=== PATIENT | female | born 1975 | race Caucasian/White ===

== ENCOUNTER → 2021-08-28 | Outpatient (CLI) | payer OTHER ==
--- NOTE | 2021-08-28 14:58 | CONS ---
CONSULTATION DATE OF SERVICE: 08/28/2021 This 46-year-old lady has been evaluated in Sleep Center for possible obstructive sleep apnea-hypopnea syndrome. HISTORY OF PRESENT ILLNESS/SLEEP-WAKE EVALUATION: Patient's usual sleep schedule is from 9 or 10 p.m. to 6 a.m., basically 7 days a week. She does have problems with falling asleep, has a TV set in the bedroom. She usually sleeps on the side position with loud with loud snoring and witnessed episodes by her bed partner of stopped breathing during sleep. Positive history of heartburn during sleep. She wakes up from sleep 3 times with nocturia. No history of hypnagogic hallucinations, sleep paralysis or cataplexy. During the day, the patient has problems with concentration. [place] Sleepiness Scale is 3. Usually she does not take any naps. She takes 3 cups of coffee in the morning. 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 PAST SURGICAL HISTORY: Total left-sided hip joint replacement. MEDICATIONS: Adderall 20 mg once a day. SOCIAL HISTORY: Positive for smoking one pack a day for about 30 years. Alcohol consumption occasional. FAMILY HISTORY: Sleep apnea in her father. Narcolepsy in her mom. Headaches, cancer, diabetes, mental illness, restless legs in her mom. REVIEW OF SYSTEMS: Loud snoring, multiple awakenings from sleep, difficulties concentrating during the day. No fevers. No double vision. No recent chest pain. No shortness of breath. No abdominal pain. No bleeding episodes. No blood in the urine. No seizure episodes. PHYSICAL EXAMINATION: GENERAL APPEARANCE: Pleasant 46-year-old lady without distress. VITAL SIGNS: BP 148/104 in right arm and 155/102 in left arm. Respiratory rate 18, height 5 feet 2-1/3 inches, weight 149.6 pounds, body mass index 26.9, temperature 97.3, oxygen saturation at room air 98%. HEENT: PERRLA, EOMI, evaluation of oropharynx showed tongue protrudes midline. Big uvula. soft palate; Mallampati II. NECK: Supple, no JVD. Thyroid is not palpable. LUNGS: Clear to percussion and to auscultation. Good air exchange. No wheezing or rhonchi. HEART: S1, S2 regular. No murmurs, gallops, or rubs. ABDOMEN: Soft and nontender. Bowel sounds are present. No organomegaly appreciated. EXTREMITIES: No clubbing or cyanosis. CHAMBER WORKER: Awake, alert, and oriented X3. Cranial nerves 2 to 7 intact. There is no fasciculation or atrophy. noted. No focal deficits observed. IMPRESSION: 1. Loud snoring, witnessed episodes of stopped breathing during sleep, multiple awakenings from sleep with nocturia; obstructive sleep apnea-hypopnea syndrome. 2. Attention deficit hyperactivity disorder. 3. Headaches. 4. Acid reflux. 5. History of left hip avascular necrosis, status post left hip total joint replacement. 6. Smoking for 30 pack/years. PLAN: 1. Polysomnography for evaluation of patient's breathing during sleep. 2. CPAP/BiPAP titration if sleep study confirms obstructive sleep apnea-hypopnea syndrome. 3. Preferable position during sleep on the side. 4. No driving if patient feels any sleepiness. 5. I will see patient for follow up visit to explain results of testing and following plan. Thank you very much for referring this patient for consultation. Sincerely, Remington Pavon MD, PhD, FAASM Diplomat of [employer] Sleep Medicine Board of [place] [employer] Medicine Home Health Nurse of [facility] [place] MMODL / TOMÁSN: [id number] /
== END ==
LOC: SLEEP 13:03
PROVIDERS: ATTEND Internal Medicine
DX: G47.33 Obstructive sleep apnea (adult) (pediatric) (principal); R06.83 Snoring; F90.9 Attention-deficit hyperactivity disorder, unspecified type; R51.9 Headache, unspecified; K21.9 Gastro-esophageal reflux disease without esophagitis; F17.200 Nicotine dependence, unspecified, uncomplicated
CPT/HCPCS: 99202

== ENCOUNTER → 2022-10-12 | Outpatient (CLI) | payer BC ==
--- NOTE | 2022-10-13 08:34 | MM ---
Reason for Exam: Screening (asymptomatic). Last mammogram was performed 1 year(s) and 1 month(s) ago. Patient History: Menarche at age 15. First Full-Term at age 26. Premenopausal. Hormonal Contraceptives for 3 years from age 19 until age 22. Sister had breast cancer, age 42. Risk Values: Roma 5 year model risk: 1.6%. NCI Lifetime model risk: 17.6%. Prior Study Comparison: 09/11/2020 Bilateral Screening Mammogram, [facility]. 09/15/2021 Bilateral Screening Mammogram, [facility]. 09/25/2021 Right Diagnostic Mammogram, [facility]. Tissue Density: The breast tissue is heterogeneously dense. This may lower the sensitivity of mammography. Findings: Analyzed By CAD. There is no suspicious group of microcalcifications or new suspicious mass in either breast. Overall Assessment: Benign, BI-RAD 2 Management: Screening Mammogram of both breasts in 1 year. A clinical breast exam by your physician is recommended on an annual basis and results should be correlated with mammographic findings. Electronically signed and approved by: Vance Sweet M.D. Radiologis
== END | disposition home or self-care (01) ==
LOC: RADMAMWWP 08:42
PROVIDERS: ATTEND Family Medicine
DX: Z12.31 Encounter for screening mammogram for malignant neoplasm of breast (principal); Z80.3 Family history of malignant neoplasm of breast
CPT/HCPCS: 77063; 77067

== ENCOUNTER → 2022-12-31 | Outpatient (CLI) | payer BC ==
--- NOTE | 2022-12-31 15:42 | P.PN ---
Subjective DATE: 12/31/2022 FOLLOW UP VISIT. Patient with obstructive sleep apnea hypopnea syndrome return to sleep center for follow-up visit. Recently patient had sleep study which documented obstructive sleep apnea hypopnea syndrome. Patient was initiated on PAP therapy and today is first visit after treatment was started. Patient was able to use PAP equipment every night for the whole night. The patient does not have significant problems with PAP pressure and humidification. Patient has full face mask, was to try nasal mask. [place] sleepiness scale is 7, which is in normal range. I checked information from PAP unit. PAP unit pressure 5-8, average 7.9 cm H2O. Usage is 90% and 60 % for more then 4 hours, average 4.5 hours per night. Leak is 4.7 l/m, which is in acceptable range. Apnea Hypopnea Index is 2.9, which is normal. MEDICATIONS:1. Adderall 20 mg twice a day During physical exam: GENERAL: A pleasant patient without any distress. VITAL SIGNS: BP 135/88, HR 72, RR 12, weight 133.2, temperature 97.7, oxygen saturation at room air 98. HEENT: PERRLA, EOMI.low position of soft palate, Mallapati[] . NECK: Supple. No JVD. LUNGS: Clear to percussion and to auscultation. Good air exchange. No wheezing or rhonchi. HEART: S1, S2 regular. ABDOMEN: Soft and nontender.[] EXTREMITIES: No clubbing or cyanosis. STREET ENGINEER: Awake, alert, and oriented x3. No focal deficit. Impressions: 1. Obstructive sleep apnea-hypopnea syndrome. Patient demonstrated borderline compliance with treatment, benefiting from treatment. 2. History of ADHD. 3. History of acid reflux. 4. History of headaches. 5. History of left hip I'll ask her necrosis, status post left hip total joint replacement. 6. Smoker for about 30 pack years. Preescription for dream where under the nose mask. Plan: 1. Continue using PAP equipment every night for the whole night. 2. To change air filter at least 1-2 times per month. 3. PAP unit should stay lower then position of the head. 4. Advised patient to remove all remaining water from humidifier canister daily and make it dry after each usage. Refill canister with fresh distilled water before each usage. 5. Sleep hygiene with regular time in bed for at least 8 hours. 6. Precautions related to driving. No driving if feel any sleepiness. 7. I will maintain prescription for PAP supplies including mask, tube, filters. 8. Follow up visit in 6 months or earlier if patient has any problems. Thank you very much for allowing me to participate in the management of your patient. Remington Pavon MD, PhD, FAASM. Diplomat of [place] [employer] Medicine, Sleep Medicine Board by [place] [employer] Ham Stringer of [facility] [place]
== END ==
LOC: 3 N SLEEP 14:36
PROVIDERS: ATTEND Internal Medicine
DX: G47.33 Obstructive sleep apnea (adult) (pediatric) (principal); F17.200 Nicotine dependence, unspecified, uncomplicated; F90.9 Attention-deficit hyperactivity disorder, unspecified type; R51.9 Headache, unspecified; K21.9 Gastro-esophageal reflux disease without esophagitis; Z96.642 Presence of left artificial hip joint; Z99.89 Dependence on other enabling machines and devices
CPT/HCPCS: 99212

== ENCOUNTER → 2023-01-01 | Outpatient (CLI) | payer BC ==
--- NOTE | 2023-01-01 13:51 | US ---
EXAMINATION TYPE: US mass soft tissue chest/back DATE OF EXAM: 01/01/2023 COMPARISON: NONE CLINICAL INDICATION: Female, 47 years old with history of PALP, N60.09, CYST; TECHNIQUE: Ultrasound at the site of clinical concern was performed corresponds to the chest wall/st ernal region FINDINGS: At the site of clinical concern there is an 8 x 6 mm smoothly marginated cystic structure with mba internship al debris just below the skin line. This may reflect a sebaceous cyst. Dermatology consult recommende d. IMPRESSION: Probable sebaceous cyst.
== END | disposition home or self-care (01) ==
LOC: RADMAMWWP 12:59
PROVIDERS: ATTEND Family Medicine
DX: N60.09 Solitary cyst of unspecified breast (principal); N63.0 Unspecified lump in unspecified breast

== ENCOUNTER → 2023-07-22 | Outpatient (CLI) | payer BC ==
--- NOTE | 2023-07-22 12:19 | P.PN ---
Subjective DATE: 07/22/2023 FOLLOW UP VISIT. Patient with obstructive sleep apnea hypopnea syndrome return to sleep center for follow-up visit. Information from previous visit have been reviewed. Patient is using PAP equipment every night for the whole night, getting PAP supplies in time. The patient does not have significant problems with the mask, PAP unit and humidification. [place] sleepiness scale is 3, which is normal. I checked information from PAP unit. PAP unit pressure 5-8, average 7.7 cm H2O. Usage is 93% and 90 % for more then 4 hours, average 6.5 hours per night. Leak is 6.0 l/m, which is in acceptable range. Apnea Hypopnea Index is 0.7, which is normal. MEDICATIONS:1. Lamictal 2. Adderall 20 mg twice a day 3. Seroquel at bedtime During physical exam: GENERAL: A pleasant patient without any distress. VITAL SIGNS: BP 134/91, HR 92, RR 12, weight 141.6, temperature 98.1, oxygen saturation at room air 99 % . HEENT: PERRLA, EOMI.low position of soft palate. NECK: Supple. No JVD. LUNGS: Clear to percussion and to auscultation. Good air exchange. No wheezing or rhonchi. HEART: S1, S2 regular. ABDOMEN: Soft and nontender.[] EXTREMITIES: No clubbing or cyanosis. CARPENTER/LABOR: Awake, alert, and oriented x3. No focal deficit. Impressions: 1. Obstructive sleep apnea-hypopnea syndrome. Patient demonstrated great compliance with treatment, benefiting from treatment. 2. History of ADHD. 3. History of headaches. 4. History of acid reflux. 5. Status post left hip replacement. Plan: 1. Continue using PAP equipment every night for the whole night. 2. To change air filter at least 1-2 times per month. 3. PAP unit should stay lower then position of the head. 4. Advised patient to remove all remaining water from humidifier canister daily and make it dry after each usage. Refill canister with fresh distilled water before each usage. 5. Sleep hygiene with regular time in bed for at least 8 hours. 6. Precautions related to driving. No driving if feel any sleepiness. 7. I will maintain prescription for PAP supplies including mask, tube, filters. 8. Follow up visit in 6 months or earlier if patient has any problems. 9. Watching weight. Thank you very much for allowing me to participate in the management of your p atient. Remington Pavon MD, PhD, FAASM. Diplomat of [place] [employer] Sleep Medicine, Sleep Medicine Board by [employer] [employer] Medicine Ladies Underwear Operator of [facility] [place]
== END ==
LOC: 3 N SLEEP 11:21
PROVIDERS: ATTEND Internal Medicine
DX: G47.33 Obstructive sleep apnea (adult) (pediatric) (principal); F90.9 Attention-deficit hyperactivity disorder, unspecified type; K21.9 Gastro-esophageal reflux disease without esophagitis; Z96.642 Presence of left artificial hip joint; Z86.69 Personal history of other diseases of the nervous system and sense organs; Z99.89 Dependence on other enabling machines and devices
CPT/HCPCS: 99212

== ENCOUNTER → 2024-02-02 | Outpatient (CLI) | payer BC ==
--- NOTE | 2024-02-07 10:31 | MM ---
Reason for Exam: Screening (asymptomatic). Last mammogram was performed 1 year(s) and 3 month(s) ago. Patient History: Menarche at age 15. First Full-Term at age 26. Premenopausal. Hormonal Contraceptives for 3 years from age 19 until age 22. Sister had breast cancer, age 42. Risk Values: Roma 5 year model risk: 1.6%. NCI Lifetime model risk: 17.3%. Prior Study Comparison: 09/11/2020 Bilateral Screening Mammogram, [facility]. 09/15/2021 Bilateral Screening Mammogram, [facility]. 09/25/2021 Right Diagnostic Mammogram, [facility]. 10/12/2022 Bilateral MG 3D screening mammo w/cad, [facility]. Tissue Density: The breasts are heterogeneously dense, which may obscure small masses. Findings: Analyzed By CAD. Right breast: There is no suspicious group of microcalcifications or new suspicious mass. Left breast: There is no suspicious group of microcalcifications or new suspicious mass. Overall Assessment: Negative, BI-RAD 1 Management: Screening Mammogram of both breasts in [address] [facility] will attempt to contact patient to return for supplemental views and ultrasound if indicated. Patient should continue monthly self-breast exams. A clinical breast exam by your physician is recommended on an annual basis. This exam should not preclude additional follow-up of suspicious palpable abnormalities. Note on Roma scores and lifetime risk: 1. A Roma score greater than 3% is considered moderate risk. If this is the case, consider specialist referral to assess eligibility for a risk reducing agent. 2. If overall lifetime risk for the development of breast cancer is 20% or higher, the patient may qualify for future screening with alternating mammogram and breast MRI. Electronically signed and approved by: Drake Chahal DO
== END | disposition home or self-care (01) ==
LOC: RADMAMWWP 13:00
PROVIDERS: ATTEND Family Medicine
DX: Z12.31 Encounter for screening mammogram for malignant neoplasm of breast (principal); Z80.3 Family history of malignant neoplasm of breast; R92.333 Mammographic heterogeneous density, bilateral breasts
CPT/HCPCS: 77063; 77067

== ENCOUNTER → 2024-05-18 | Outpatient (CLI) | payer BC ==
[2024-05-18 14:29] VITALS: BP 153/96; PULSE 86; RESP 16; TEMP 98
--- NOTE | 2024-05-18 14:55 | P.PROGSL ---
Subjective DATE: 05/18/2024 FOLLOW UP VISIT. Patient with obstructive sleep apnea hypopnea syndrome return to sleep center for follow-up visit. Information from previous visit have been reviewed. Patient is using PAP equipment every night for the whole night, getting PAP supplies in time. The patient does not have significant problems with the mask, PAP unit and humidification. [place] sleepiness scale is 7, which is in normal range. I checked information from PAP unit. PAP unit pressure 5-8, average 7.8 cm H2O. Usage is 100% for more then 4 hours, average 6.2 hours per night. Leak is perfect 0 l/m. Apnea Hypopnea Index is 2.5 for the last night and 0.7 average for the year, which is normal. MEDICATIONS have been reviewed, please see below. During physical exam: GENERAL: A pleasant patient without any distress. VITAL SIGNS: Please see below, weight is 151.6 lbs. HEENT: PERRLA, EOMI.low position of soft palate, Mallapati 3. NECK: Supple. No JVD. LUNGS: Clear to percussion and to auscultation. Good air exchange. No wheezing or rhonchi. HEART: S1, S2 regular. ABDOMEN: Soft and nontender.[] EXTREMITIES: No clubbing or cyanosis. NET COORDINATOR: Awake, alert, and oriented x3. No focal deficit. Impressions: 1. Obstructive sleep apnea-hypopnea syndrome. Patient demonstrated great compliance with treatment, benefiting from treatment. 2. History of headaches. 3. History of ADHD. 4. Status post left hip replacement. 5. History of acid reflux. Plan: 1. Continue using PAP equipment every night for the whole night. 2. Sleep hygiene with regular time in bed for at least 7.5-8 hours 3. PAP unit should stay lower then position of the head. 4. Advised patient to remove all remaining water from humidifier canister daily and make it dry after each usage. Refill canister with fresh distilled water before each usage. 5. Watching weight. 6. Precautions related to driving. No driving if feel any sleepiness. 7. I will maintain prescription for PAP supplies including mask, tube, filters. 8. Follow up visit in 8 months or earlier if patient has any problems. Thank you very much for allowing me to participate in the management of your patient. Remington Pavon MD, PhD, FAASM. Diplomat of [place] [employer] Sleep Medicine, Sleep Medicine Board by [place] [employer] Internal Medicine Firefighter Marine of [facility] [place] Objective - Vital Signs Vital Signs: Vital Signs Temp 98.0 F 05/18/24 14:28 Pulse 86 05/18/24 14:28 Resp 16 05/18/24 14:28 BP 153/96 05/18/24 14:28 Pulse Ox 94 L 05/18/24 14:28 FiO2 Intake & Output 05/17/24 05/18/24 05/18/24 18:59 06:59 18:59 Weight 68.663 kg Home Medications: Home Medications Medication Instructions Recorded Confirmed Type Albuterol Inhaler [Ventolin Hfa 1 - 2 puff INHALATION Q6H PRN 05/18/24 05/18/24 History Inhaler] Benzonatate [Tessalon Perle] 200 mg PO TID 05/18/24 05/18/24 History Dextroamphetamine/Amphetamine 20 mg PO BID 05/18/24 05/18/24 History [Adderall] Fluticasone Nasal [place] [Flonase 1 spray EA NOSTRIL DAILY 05/18/24 05/18/24 History Nasal [place]] Loratadine [Claritin] 10 mg PO DAILY 05/18/24 05/18/24 History QUEtiapine [SEROquel] 25 mg PO HS 05/18/24 05/18/24 History
== END ==
LOC: 3 N SLEEP 13:47
PROVIDERS: ATTEND Internal Medicine
DX: G47.33 Obstructive sleep apnea (adult) (pediatric) (principal); F90.9 Attention-deficit hyperactivity disorder, unspecified type; Z99.89 Dependence on other enabling machines and devices; Z96.642 Presence of left artificial hip joint; Z86.69 Personal history of other diseases of the nervous system and sense organs; Z87.19 Personal history of other diseases of the digestive system
CPT/HCPCS: 99212

== ENCOUNTER → 2025-01-17 | Outpatient (CLI) | payer BC ==
[2025-01-17 14:21] VITALS: BP 151/104; PULSE 89; RESP 12; TEMP 98
--- NOTE | 2025-01-17 14:36 | P.PROGSL ---
Subjective DATE: 01/17/2025 FOLLOW UP VISIT. Patient with obstructive sleep apnea hypopnea syndrome return to sleep center for follow-up visit. Information from previous visit have been reviewed. Patient is using PAP equipment every night for the whole night, getting PAP supplies in time. The patient does not have significant problems with the mask, PAP unit and humidification. [place] sleepiness scale is 1, which is perfect. I checked information from PAP unit. PAP unit pressure 5-8, average 7.9 cm H2O. Usage is 100% for more then 4 hours, average 6.9 hours per night. Leak is absent 0 l/m. Apnea Hypopnea Index is 0.8, which is great. MEDICATIONS have been reviewed, please see below. During physical exam: GENERAL: A pleasant patient without any distress. VITAL SIGNS: Please see below, weight is 157 lbs. HEENT: PERRLA, EOMI.low position of soft palate, Mallapati 3. NECK: Supple. No JVD. LUNGS: Clear to percussion and to auscultation. Good air exchange. No wheezing or rhonchi. HEART: S1, S2 regular. ABDOMEN: Soft and nontender.[] EXTREMITIES: No clubbing or cyanosis. BOOKING MANAGER: Awake, alert, and oriented x3. No focal deficit. Impressions: 1. Obstructive sleep apnea-hypopnea syndrome. Patient demonstrated great compliance with treatment, benefiting from treatment. 2. History of ADHD. 3. History of headaches. 4. Status post left hip replacement. 5. History of acid reflux. Plan: 1. Continue using PAP equipment every night for the whole night. 2. Sleep hygiene with regular time in bed for at least 7.5-8 hours 3. PAP unit should stay lower then position of the head. 4. Advised patient to remove all remaining water from humidifier canister daily and make it dry after each usage. Refill canister with fresh distilled water before each usage. 5. Watching weight. 6. Precautions related to driving. No driving if feel any sleepiness. 7. I will maintain prescription for PAP supplies including mask, tube, filters. 8. Follow up visit in 8 months or earlier if patient has any problems. Thank you very much for allowing me to participate in the management of your patient. Remington Pavon MD, PhD, FAASM. Diplomat of [place] Board [employer] Sleep Medicine, Sleep Medicine Board by [place] [employer] Internal Medicine Progress Worker of [facility] [place] Objective - Vital Signs Vital Signs: Vital Signs Temp 98 F 01/17/25 14:20 Pulse 89 01/17/25 14:20 Resp 12 01/17/25 14:20 BP 151/104 01/17/25 14:20 Pulse Ox 96 01/17/25 14:20 FiO2 Intake & Output 01/16/25 01/17/25 01/17/25 18:59 06:59 18:59 Weight 69.4 kg Home Medications: Home Medications Medication Instructions Recorded Confirmed Type Albuterol Inhaler [Ventolin Hfa 1 - 2 puff INHALATION Q6H PRN 05/18/24 05/18/24 History Inhaler] Benzonatate [Tessalon Perle] 200 mg PO TID 05/18/24 05/18/24 History Dextroamphetamine/Amphetamine 20 mg PO BID 05/18/24 05/18/24 History [Adderall] Fluticasone Nasal [place] [Flonase 1 spray EA NOSTRIL DAILY 05/18/24 05/18/24 History Nasal [place]] Loratadine [Claritin] 10 mg PO DAILY 05/18/24 05/18/24 History QUEtiapine [SEROquel] 25 mg PO HS 05/18/24 05/18/24 History
== END ==
LOC: 3 N SLEEP 13:50
PROVIDERS: ATTEND Internal Medicine
DX: G47.33 Obstructive sleep apnea (adult) (pediatric) (principal); Z99.89 Dependence on other enabling machines and devices; Z96.641 Presence of right artificial hip joint; Z86.59 Personal history of other mental and behavioral disorders; Z86.69 Personal history of other diseases of the nervous system and sense organs; Z87.19 Personal history of other diseases of the digestive system
CPT/HCPCS: 99212